=== PATIENT | female | born 1960 | race Caucasian/White ===

== ENCOUNTER 2017-03-22 11:16 | Day surgery (SDC) | payer MEDICAID, MEDICARE, OTHER ==
[2017-03-22] MEDS ORDERED: Lactated Ringers 1,000 ML IV SCH (11:45)
[2017-03-22] MEDS ORDERED: Ferric Subsulfate Topical Soln 8 GM (8 ML) Bottle ONE (12:02)
[2017-03-22] MEDS ORDERED: Silver Nitrate Applicator Each ONE (12:02)
[2017-03-22] MEDS ORDERED: Atenolol 50 MG Tab PO ONE (12:03)
[2017-03-22] MEDS ORDERED: fentaNYL 100 MCG/2 ML SDV ONE (12:23)
[2017-03-22] MEDS ORDERED: Midazolam 1 MG/ML 2 ML SDV ONE (12:23)
[2017-03-22] MEDS ORDERED: Propofol 200 MG/20 ML SDV ONE (12:24)
[2017-03-22] MEDS ORDERED: Ondansetron 4 MG/2 ML SDV ONE (12:24)
[2017-03-22] MEDS ORDERED: Ketorolac 30 MG/ML SDV ONE (12:24)
[2017-03-22] MEDS ORDERED: Lidocaine 2% 20 ML MDV ONE (12:24)
[2017-03-22] MEDS ORDERED: Succinylcholine 200 MG/10 ML MDV ONE (12:25)
[2017-03-22] MEDS ORDERED: Labetalol 20 MG/4 ML Syringe ONE (12:25)
[2017-03-22] MEDS ORDERED: Ferric Subsulfate Topical Soln 8 GM (8 ML) Bottle TOP ONE (13:27)
[2017-03-22 14:05] VITALS: BP 106/57
[2017-03-22] MEDS ORDERED: Lidocaine 2% 20 ML MDV INJECT ONE (14:25)
[2017-03-22] MEDS ORDERED: Ketorolac 30 MG/ML SDV IVPUSH ONE (14:25)
[2017-03-22] MEDS ORDERED: Propofol 200 MG/20 ML SDV IV ONE (14:25)
[2017-03-22] MEDS ORDERED: Midazolam 1 MG/ML 2 ML SDV IV ONE (14:25)
[2017-03-22] MEDS ORDERED: Ondansetron 4 MG/2 ML SDV IV ONE (14:25)
--- NOTE | 2017-03-22 17:49 | OR ---
DATE: 03/22/2017 PREOPERATIVE DIAGNOSIS: Vaginal lesion or mass. TEST PERFORMED: Examination under anesthesia, and biopsies of vaginal lesion or mass. POSTOPERATIVE DIAGNOSIS: Vaginal lesion or mass with rule out carcinoma. Pathology report is pending. ANESTHESIA: IV sedation. COMPLICATIONS: None. ESTIMATED BLOOD LOSS: 2 mL. DESCRIPTION OF PROCEDURE: After the induction of satisfactory IV sedation anesthesia and with the patient carefully placed in the dorsal lithotomy position, the examination of the pelvis was again performed very carefully and gently. The vulvar exam itself is negative. On closer inspection of the vagina, we do see the lesion that was seen very recently in the office and this is a somewhat suspicious nodular lesion that is about the size of a grape or approximately 3 to 3.5 cm in diameter and it is up on the patient's left side at approximately 1 o'clock on the superior and anterior area of the vaginal introitus. Closer inspections shows that it does not come out of the urethra itself. It is close to the urethra however, and just adjacent to the urethra. The lesion is firmly affixed to the vaginal epithelium. This area was cleansed again with more Betadine and carefully identified. The vaginal biopsies were done initially using the cervical biopsy forceps and 4 purchases of tissue were obtained from various areas on the lesion. Also, a small wedge resection was done using the #15 scalpel blade to give a larger purchase of tissue. All 5 of these specimens from the vaginal lesion or mass were carefully placed into two different specimen containers with formalin. The biopsy sites had very slight bleeding, and the small areas were electrocoagulated and then Monsel's solution was applied on to the small bleeding areas which gave good hemostasis. The vaginal canal was further inspected just like we did in the office the other day and I do not see any vaginal cuff lesions and I do not see any other implantations or lesions in the vaginal vault itself other than what has been described above. The patient has had a previous abdominal hysterectomy with left salpingo-oophorectomy. The bimanual exam reveals the uterus to be absent and the remaining right ovary is nonpalpable. The left area does not reveal any pelvic mass or enlargement. The left adnexa is therefore thought to be negative today and there was a question of possible enlargement there at the pelvic exam a couple of days ago in the office. Her CT scans of the pelvis and abdomen are pending. The ultrasound of the pelvis was quite unremarkable. All of the instruments were now removed. The estimated blood loss as mentioned above was 2 mL. The vaginal lesion remains hemostatic. Very careful and thorough followup instructions are given to the patient. We will keep in very close contact with her. When the Pathology report is back, she will call us at once if any questions or problems. The patient tolerated the procedure well and went to the recovery room in good condition. [facility] /[id number]
== END 2017-03-22 14:30 | disposition home or self-care (01) ==
LOC: DL.SDS 11:16
PROVIDERS: ATTEND Obstetrics & Gynecology
DX: C52 Malignant neoplasm of vagina (principal); I10 Essential (primary) hypertension; E78.5 Hyperlipidemia, unspecified; Z86.73 Personal history of transient ischemic attack (TIA), and cerebral infarction without residual deficits; Z90.710 Acquired absence of both cervix and uterus; Z90.49 Acquired absence of other specified parts of digestive tract; Z98.890 Other specified postprocedural states; Z79.899 Other long term (current) drug therapy; Z88.8 Allergy status to other drugs, medicaments and biological substances; Z88.1 Allergy status to other antibiotic agents; Z88.2 Allergy status to sulfonamides
CPT/HCPCS: 36415; 57135; 85610; A9270; J1885; J2250; J2405; J2704; J7120; 00860; 88305; 88341; 88342

== ENCOUNTER 2020-10-22 06:27 | Day surgery (SDC) | payer MEDICARE, MEDICAID ==
[~2020-10-22 06:27] MED LIST: Midazolam 1 MG/ML 2 ML SDV ONE; fentaNYL 100 MCG/2 ML SDV ONE
[2020-10-22] MEDS ORDERED: Midazolam 1 MG/ML 2 ML SDV IV ONE ×8 (06:28→08:08)
[2020-10-22] MEDS ORDERED: fentaNYL 100 MCG/2 ML SDV IV ONE ×3 (06:28→07:52)
[2020-10-22] MEDS ORDERED: Sodium Chloride 0.9% 10 ML Syringe FLUSH PRN (07:25)
[2020-10-22] MEDS ORDERED: Dextrose 5%-0.45% NaCl 1,000 ML IV SCH (07:30)
--- NOTE | 2020-10-22 08:57 | OR ---
DATE: 10/22/2020 PROCEDURE: Total colonoscopy. INSTRUMENT USED: PCF-H190DL Olympus video colonoscope. PREMEDICATIONS: Fentanyl 100 mcg intravenous, Versed 3.5 mg intravenous. Nasal O2 cannula. The procedure was done under pulse oximetry, BP recording, and environmental monitoring specialist. INDICATION: The patient with Hemoccult positive stools. Colonoscopic examination is done for detection of any polypoid lesions and removal, endoscopic hemostasis therapy if needed. DESCRIPTION OF PROCEDURE: Initial rectal exam showed external hemorrhoidal tags. Rigid anoscopy showed some prolapse in distal rectal folds. The colonoscope was passed with ease. Few diverticula were noted in the distal left colon along with significant deformity. The scope was passed with ease up to the ileocecal area. Photographs were taken of the normal-appearing cecum identified by landmarks of appendiceal orifice and double-bulged ileocecal folds. No bleeding was noted from any of the visualized areas at the commencement of the examination. The bowel preparation was found to be adequate, [place] scale 2 in all the regions. No stricture. No vascular ectasia. No large isolated ulceration seen. No evidence of diffuse inflammatory bowel disease in the form of friability, contact bleeding, or ulcerations. No polyp or tumor mass identified. Probing the proximal sides of folds and flexures using adequate distention and clearing up the stool material, withdrawal of the scope was made. Cecum to rectum time over 6 minutes. No bleeding was noted from any of the visualized areas at the completion of examination. IMPRESSION: 1. External hemorrhoids. 2. Diverticulosis. The patient tolerated the procedure well. [facility] /[id number]
[2020-10-22 10:47] VITALS: BP 95/64; PULSE 70
== END 2020-10-22 10:18 | disposition home or self-care (01) ==
LOC: DL.ENDO 06:27
PROVIDERS: ATTEND Internal Medicine Gastroenterology
DX: K57.30 Diverticulosis of large intestine without perforation or abscess without bleeding (principal); K64.4 Residual hemorrhoidal skin tags; E66.09 Other obesity due to excess calories; I10 Essential (primary) hypertension; E78.5 Hyperlipidemia, unspecified; Z86.73 Personal history of transient ischemic attack (TIA), and cerebral infarction without residual deficits; Z98.890 Other specified postprocedural states; Z88.2 Allergy status to sulfonamides; Z88.8 Allergy status to other drugs, medicaments and biological substances; Z68.35 Body mass index [BMI] 35.0-35.9, adult
CPT/HCPCS: 45378; J2250; J3010; J7042

== ENCOUNTER 2021-10-24 01:26 | Emergency (ER) | payer MEDICARE, MEDICAID ==
[2021-10-24 02:17] VITALS: BP 125/76; PULSE 93
[2021-10-24 03:10] LABS: ANION GAP 17.7 mEq/L (7-13)
[2021-10-24] MEDS ORDERED: Iopamidol 612 MG/ML 100 ML Bottle IVPUSH ONE (03:41)
[2021-10-24] MEDS ORDERED: Ondansetron 4 MG/2 ML SDV IVPUSH ONE (03:41)
[2021-10-24] MEDS ORDERED: Butorphanol 2 MG/ML SDV IVPUSH ONE (03:41)
== END 2021-10-24 06:00 | disposition home or self-care (01) ==
LOC: DL.ED 01:26
DX: R51.9 Headache, unspecified (principal); R11.2 Nausea with vomiting, unspecified; R19.7 Diarrhea, unspecified; E78.00 Pure hypercholesterolemia, unspecified; I10 Essential (primary) hypertension; K21.9 Gastro-esophageal reflux disease without esophagitis; Z88.0 Allergy status to penicillin; Z88.1 Allergy status to other antibiotic agents; Z88.2 Allergy status to sulfonamides; Z79.82 Long term (current) use of aspirin; Z79.899 Other long term (current) drug therapy; Z86.73 Personal history of transient ischemic attack (TIA), and cerebral infarction without residual deficits
CPT/HCPCS: 36415; 70450; 74177; 80053; 82150; 83690; 85025; 85610; 96374; 96375; 99284; J0595; J2405; Q9967

== ENCOUNTER 2022-10-09 13:10 | Emergency (ER) | payer MEDICARE, MEDICAID ==
[2022-10-09 14:02] VITALS: BP 141/82; PULSE 94
[2022-10-09] MEDS ORDERED: Metoclopramide 10 MG/2 ML SDV IVPUSH ONE (14:28)
[2022-10-09] MEDS ORDERED: Sodium Chloride 0.9% 1,000 ML IV ONE (14:28)
[2022-10-09] MEDS ORDERED: Sodium Chloride 0.9% 10 ML Syringe FLUSH PRN (14:29)
[2022-10-09] MEDS ORDERED: diphenhydrAMINE 50 MG/ML SDV IVPUSH ONE (14:29)
[2022-10-09] MEDS ORDERED: Ketorolac 30 MG/ML SDV IVPUSH ONE (14:29)
== END 2022-10-09 15:52 | disposition home or self-care (01) ==
LOC: DL.ED 13:10
DX: R51.9 Headache, unspecified (principal); I10 Essential (primary) hypertension; F32.A Depression, unspecified; E78.00 Pure hypercholesterolemia, unspecified; Z86.73 Personal history of transient ischemic attack (TIA), and cerebral infarction without residual deficits; Z88.0 Allergy status to penicillin; Z88.1 Allergy status to other antibiotic agents; Z88.2 Allergy status to sulfonamides
CPT/HCPCS: 96361; 96374; 96375; 99282; 99283; J1200; J1885; J2765; J3490; J7030

== ENCOUNTER 2022-11-02 08:30 | Day surgery (SDC) | payer MEDICARE, MEDICAID ==
[~2022-11-02 08:30] MED LIST changes: +Acetaminophen 325 MG Tab PO PRN; +Acetaminophen/Codeine 300-30 MG Tab PO PRN; +Cataract Ophth Solution EYERT ONE; -Midazolam 1 MG/ML 2 ML SDV ONE; +Moxifloxacin 0.5% Ophth Soln 3 ML Bottle EYERT ONE; +Ondansetron 4 MG/2 ML SDV IVPUSH PRN; +Phenylephrine 10% Ophth Soln 5 ML Bot EYERT PRN; +Povidone-Iodine 5% Sterile Ophth Soln 30 ML Bottle EYERT ONE; +Proparacaine 0.5% Ophth Soln 15 ML Bottle EYERT ONE; +Sodium Chloride 0.9% 10 ML Syringe FLUSH PRN; +Timolol Maleate 0.5% Ophth Soln 5 ML Bottle EYERT ONE; +Tropicamide 1% Ophth Soln 15 ML Bottle EYERT ONE; -fentaNYL 100 MCG/2 ML SDV ONE
[2022-11-02] MEDS ORDERED: Dexamethasone 4 MG/ML SDV IVPUSH ONE (08:31)
[2022-11-02] MEDS ORDERED: Midazolam 1 MG/ML 2 ML SDV IVPUSH ONE (08:31)
[2022-11-02] MEDS ORDERED: Sodium Chloride 0.9% 10 ML Syringe IV ONE (08:31)
[2022-11-02] MEDS ORDERED: Proparacaine 0.5% Ophth Soln 15 ML Bottle EYERT ONE (09:26)
[2022-11-02] MEDS ORDERED: Povidone-Iodine 5% Sterile Ophth Soln 30 ML Bottle EYERT ONE (09:27)
[2022-11-02] MEDS ORDERED: Diclofenac Sodium 0.1% Ophth Soln 5 ML Bottle EYERT ONE (09:28)
[2022-11-02] MEDS ORDERED: Dexamethasone/Neomycin/Polymyxin B Ophth Oint 3.5 GM Tube EYERT ONE (09:28)
[2022-11-02] MEDS ORDERED: Apraclonidine 0.5% Ophth Soln 5 ML Bot EYERT ONE (09:28)
[2022-11-02] MEDS ORDERED: Lidocaine 1% 30 ML SDV ONE (09:29)
[2022-11-02] MEDS ORDERED: Vancomycin 500 MG SDV EYERT ONE (09:29)
[2022-11-02] MEDS ORDERED: Balanced Salt Solution Ophth Irrig 500 ML Bottle IOCULAR ONE (09:29)
[2022-11-02] MEDS ORDERED: Chondroitin Sulfate/Hyaluronate Sodium Ophth Inj 0.75 ML Syringe EYERT ONE (09:30)
[2022-11-02 12:37] VITALS: BP 113/77; PULSE 75
== END 2022-11-02 10:15 | disposition home or self-care (01) ==
LOC: DL.SDS 08:30
PROVIDERS: ATTEND Ophthalmology
DX: H25.811 Combined forms of age-related cataract, right eye (principal); F41.9 Anxiety disorder, unspecified; K21.9 Gastro-esophageal reflux disease without esophagitis; I10 Essential (primary) hypertension; E78.5 Hyperlipidemia, unspecified; Z79.899 Other long term (current) drug therapy; Z88.1 Allergy status to other antibiotic agents
CPT/HCPCS: 00142; A9270-GY; J1100; J2250; J3370; J3490; V2632

== ENCOUNTER 2022-12-07 07:25 | Day surgery (SDC) | payer MEDICARE, MEDICAID ==
[2022-12-07] MEDS ORDERED: Acetaminophen/Codeine 300-30 MG Tab PO PRN (07:30)
[2022-12-07] MEDS ORDERED: Timolol Maleate 0.5% Ophth Soln 5 ML Bottle EYELF ONE (07:30)
[2022-12-07] MEDS ORDERED: Phenylephrine 10% Ophth Soln 5 ML Bot EYELF PRN (07:30)
[2022-12-07] MEDS ORDERED: Povidone-Iodine 5% Sterile Ophth Soln 30 ML Bottle EYELF ONE ×3 (07:30→09:16)
[2022-12-07] MEDS ORDERED: Moxifloxacin 0.5% Ophth Soln 3 ML Bottle EYELF ONE (07:30)
[2022-12-07] MEDS ORDERED: Ondansetron 4 MG/2 ML SDV IVPUSH PRN (07:30)
[2022-12-07] MEDS ORDERED: Tropicamide 1% Ophth Soln 15 ML Bottle EYELF ONE (07:30)
[2022-12-07] MEDS ORDERED: Proparacaine 0.5% Ophth Soln 15 ML Bottle EYELF ONE ×3 (07:30→09:16)
[2022-12-07] MEDS ORDERED: Cataract Ophth Solution EYELF ONE (07:30)
[2022-12-07] MEDS ORDERED: Sodium Chloride 0.9% 10 ML Syringe FLUSH PRN (07:30)
[2022-12-07] MEDS ORDERED: Acetaminophen 325 MG Tab PO PRN (07:30)
[2022-12-07] MEDS ORDERED: Apraclonidine 0.5% Ophth Soln 5 ML Bot EYELF ONE ×2 (07:35→09:16)
[2022-12-07] MEDS ORDERED: Diclofenac Sodium 0.1% Ophth Soln 5 ML Bottle EYELF ONE ×2 (07:37→09:16)
[2022-12-07] MEDS ORDERED: Dexamethasone/Neomycin/Polymyxin B Ophth Oint 3.5 GM Tube EYELF ONE ×2 (07:42→09:17)
[2022-12-07] MEDS ORDERED: Lidocaine 1% 30 ML SDV ONE ×2 (07:44→09:17)
[2022-12-07] MEDS ORDERED: Balanced Salt Solution Ophth Irrig 500 ML Bottle IOCULAR ONE ×2 (07:46→09:17)
[2022-12-07] MEDS ORDERED: Vancomycin 500 MG SDV EYELF ONE ×2 (07:46→09:17)
[2022-12-07] MEDS ORDERED: Chondroitin Sulfate/Hyaluronate Sodium Ophth Inj 0.75 ML Syringe EYELF ONE ×2 (07:47→09:17)
[2022-12-07 09:51] VITALS: BP 115/64; PULSE 72
== END 2022-12-07 09:58 | disposition home or self-care (01) ==
LOC: DL.SDS 07:25
PROVIDERS: ATTEND Ophthalmology
DX: H25.813 Combined forms of age-related cataract, bilateral (principal); F41.9 Anxiety disorder, unspecified; K21.9 Gastro-esophageal reflux disease without esophagitis; E78.5 Hyperlipidemia, unspecified; Z79.899 Other long term (current) drug therapy; Z88.1 Allergy status to other antibiotic agents; Z88.2 Allergy status to sulfonamides
CPT/HCPCS: 00142; A9270-GY; J3370; J3490; V2632

== ENCOUNTER 2023-03-26 11:07 | Emergency (ER) | payer MEDICARE, MEDICAID ==
[2023-03-26 12:16] VITALS: BP 127/68; PULSE 71
== END 2023-03-26 12:12 | disposition home or self-care (01) ==
LOC: DL.ED 11:07
DX: S09.90XA Unspecified injury of head, initial encounter (principal); E78.00 Pure hypercholesterolemia, unspecified; I10 Essential (primary) hypertension; Z88.0 Allergy status to penicillin; Z88.2 Allergy status to sulfonamides; Z88.8 Allergy status to other drugs, medicaments and biological substances; Z79.899 Other long term (current) drug therapy; Z90.49 Acquired absence of other specified parts of digestive tract; W01.10XA Fall on same level from slipping, tripping and stumbling with subsequent striking against unspecified object, initial encounter
CPT/HCPCS: 70450; 99282; 99283